=== PATIENT | female | born 2005 | race Caucasian/White ===

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

== ENCOUNTER 2025-01-23 23:47 | Emergency (ER) | payer OTHER ==
--- OUTSIDE RECORDS SUMMARY | 2025-01-23 23:49 | XMS REPORT | Continuity of Care Document ---
Author Name Unknown Address [address] [facility] [address] [place] [address] [facility] [address] [facility] [address] [place] [address] Care Team Providers Care Blankbook Forwarder Name Role Phone GUILLERMINA PATHAK Primary Care Physician Unavailab SUGAR Foster Attending Clinician Unavailable Sugar Meza MD Attending Clinician [phone] Doctor Unassigned, [place] Attending Clinician U Devyn Jaeger Attending Clinician [phone] Cathie Keane PA-C Attending Clinician [phone] Jonathan Mcpherson CRNA Attending Clinician [phone] Jennifer Rueda MD, Leonard Attending Clinician + [phone] Only, Adc Test Attending Clinician Unavailable Domi Roberson RN Attending Clinician Unavailable 2, Adc Lab Attending Clinician Unavailable Ultrasound, Adc Mfm Attending Clinician Unavaila siddhartha Vidales MD, Herzog Attending Clinician + Pob, Adc Lab Main Attending Clinician Unavailabl e V_Landis Attending Clinician Unavailable Raju_P Attending Clinician Unavailable SUGAR MEZA Admitting Clinician Unavailable Sugar Meza MD Admitting Clinician [phone] V_Jorgito Admitting Clinician Unavailable Raju_P Admitting Clinician Unavailable Payers Payer Name Policy Type Policy Number Effective Date Expirati on Date Source [facility] MEDICAID [id number] 2019 00:00:00 [facility] [id number] 00:00:00 [facility] (MEDICAID REPLACEMENT - HMO) [id number] [facility] (MEDICAID HMO) [id number] Problems Condition Name Condition Details Condition Category Status Onset Date Resolution Date Last Treatment Date Treating Clinician Comments Source Pain, joint, knee, left Pain, joint, knee, left Diagnosis Active [facility] 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 Diagnosis Active [facility] Hamstring tendinitis of left thigh Hamstring tendinitis of left thigh Diagnosis Active [facility] No known active problems No known active problems Disease [facility] Allergies, Adverse Reactions, Alerts Allergy Name Allergy Type Status Severity Reaction(s) Onset Date Inactive Date Treating Clinician Comments Source NO KNOWN ALLERGIE S Drug Class Active [facility] Social History Social Habit Start Date Stop Date Quantity Comments Source History of tobacco use Passive smoker [facility] Exposure to SARS-CoV-2 (event) 2022-04-28 00:00:00 2022-05-08 09:29:00 Not sure [facility] Tobacco use and exposure 2022-05-08 00:00:00 2022-05-08 00:00:00 User of smokeless tobacco [facility] Alcohol intake 2022-05-08 00:00:00 2022-05-08 00:00:00 0 /d [facility] Sex Assigned At 2005 00:00:00 2005 00:00:00 [facility] Smoking Status Start Date Stop Date Source Never smoked tobacco [facility] Medications Ordered Medication Name Filled Medication Name Start Date Stop Date Current Medication? Ordering Clinician Indication Dosage Frequency Signature (SIG) Comments Components Source Nitrofurant oin&Nit. Macrocryst 100 mg capsule 05-11 00:00: 00 Yes [id number] 100mg Take 1 capsule by mouth in the morning and 1 capsule in the evening. [facility] fluconazole 150 mg tablet 05-11 00:00: 00 05-12 04:59 :00 No [id number] 150mg Take 1 tablet by mouth once now for 1 dose. [facility] 25/iron fum/folic/d murillo (-1 ORAL) 05-16 15:00: 18 Yes Take by mouth. [facility] Dion Ashley Yes Fransisco Hamilton not defined [facility] Vital Signs Vital Name Observation Time Observation Value Comments Noble jimenez Systolic blood pressure 2022-05-08 14:54:00 109 mm[Hg] [facility] Diastolic blood pressure 2022-05-08 14:54:00 75 mm[Hg] [facility] Heart rate 2022-05-08 14:54:00 91 /min [facility] Body temperature 2022-05-08 14:54:00 36.89 Harleen [facility] Respiratory rate 2022-05-08 14:54:00 18 /min [facility] Body height 2022-05-08 14:54:00 162.6 cm [facility] Body weight 2022-05-08 14:54:00 63.322 kg [facility] BMI 2022-05-08 14:54:00 23.96 kg/m2 [facility] Body mass index (BMI) [Percentile] Per age and sex 2022-05-08 14:54:00 76.16 % [facility] Procedures Procedure Date / Time Performed Performing Clinicia n Source POCT URINALYSIS W/O SPECIFIC GRAVITY 2022-05-08 00:00:00 Sugar Meza [facility] Encounters Start Date/Time End Date/Time Encounter Type Admission Type Attending Clinicians Care Facility Care Department Encounter ID Source 2021-07-24 10:29:02 Emergency [facility] [id number] [facility] 2021-07-24 05:45:00 Outpatient P [facility] [id number] [facility] 2021-07-24 05:44:47 Outpatient P [facility] [id number] [facility] 2023-05-09 13:30:00 2023-05-09 13:30:00 Outpatient SUGAR KNIGHT [facility] [id number] [facility] 2023-05-09 13:30:00 2023-05-09 13:30:00 Outpatient R ADSUGAR CORNELL [facility] [id number] [facility] 2022-05-16 11:00:00 2022-05-16 11:00:00 Outpatient R ADUMSUGAR [facility] [id number] [facility] 2022-05-16 11:00:00 2022-05-16 11:00:00 Outpatient R ADUMSUGAR [facility] [id number] [facility] 2022-05-16 11:00:00 2022-05-16 11:00:00 Outpatient R ADUMSUGAR [facility] [id number] [facility] 2022-05-11 00:00:00 2022-05-11 00:00:00 Case Management Sugar Meza [facility] 1.2.840.114 350.1.13.10 4.2.7.2.686 [id number] [facility] 2022-05-08 09:30:00 2022-05-08 10:39:19 Outpatient R ADSUGAR CORNELL [facility] [id number] [facility] 2022-05-08 09:30:00 2022-05-08 10:39:19 Office Visit Sugar Meza [facility] 1.2.840.114 350.1.13.10 4.2.7.2.686 [id number] [facility] 2022-05-08 09:30:00 2022-05-08 10:39:19 Outpatient R ADSUGAR CORNELL [facility] [id number] [facility] 2022-03-21 09:00:00 2022-03-21 09:00:00 Outpatient R ADUMSUGAR [facility] [id number] [facility] 2022-02-13 10:30:00 2022-02-13 10:30:00 Outpatient R ADUMSUGAR [facility] [id number] [facility] 2022-02-13 10:30:00 2022-02-13 10:30:00 Outpatient R SUGAR MEZA [facility] [id number] [facility] 2022-02-06 13:30:00 2022-02-06 13:30:00 [id number] 2021-12-26 14:00:00 2021-12-26 15:00:50 Office Visit AdSugar cornell [facility] 1..840.114 350.1.13.10 4.2.7.2.686 [id number] 134 [id number] [facility] 2021-12-26 14:00:00 2021-12-26 15:00:50 Outpatient R JES [facility] [id number] [facility] 2021-12-26 14:00:00 2021-12-26 14:00:00 Outpatient R ADKRAIG [facility] [id number] [facility] 2021-12-26 09:00:00 2021-12-26 09:00:00 Outpatient R JES [facility] [id number] [facility] 2021-12-26 00:00:00 2021-12-26 00:00:00 Orders Only Doctor Unassigned, [place] [facility] 1..840.114 350.1.13.10 4.2.7.2.686 [id number] [facility] 2021-12-06 15:00:00 2021-12-06 15:00:00 Office Visit Sugar Meza [facility] 1..840.114 350.1.13.10 4.2.7.2.686 [id number] [facility] 2021-12-06 15:00:00 2021-12-06 14:49:58 Outpatient R ADKRAIG [facility] [id number] [facility] 2021-12-06 15:00:00 2021-12-06 14:49:58 Outpatient R NIRAVSUGAR CORNELL [facility] [id number] [facility] 2021-05-16 14:25:08 2021-05-16 15:13:14 Routine Visit NiravSugar cornell [facility] 1.2.840.114 350.1.13.10 4.2.7.2.686 [id number] 134 [id number] [facility] 2021-05-16 14:00:00 2021-05-16 14:00:00 Outpatient R JESSUGAR [facility] [id number] [facility] 2021-05-16 00:00:00 2021-05-16 00:00:00 Orders Only Doctor Unassigned, [place] [facility] 1.2.840.114 350.1.13.10 4.2.7.2.686 [id number] [facility] 2021-04-25 14:07:14 2021-04-25 14:47:25 Routine Visit NiravSugar cornell [facility] 1.2.840.114 350.1.13.10 4.2.7.2.686 [id number] [facility] 2021-04-25 14:00:00 2021-04-25 14:00:00 Outpatient R NIRAVSUGAR CORNELL [facility] [id number] [facility] 2021-04-14 22:09:00 2021-04-15 00:38:00 Emergency LizaDiannmarco [facility] 1.2.840.114 350.1.13.10 4.2.7.2.686 [id number] [facility] 2021-04-11 11:00:38 2021-04-11 11:28:35 Routine Visit Cathie Keane Sugar L [facility] 1.2.840.114 350.1.13.10 4.2.7.2.686 [id number] 134 [id number] [facility] 2021-04-11 11:00:00 2021-04-11 11:00:00 Outpatient R SUGAR MEZA [facility] [id number] [facility] 2021-04-06 03:53:00 2021-04-07 23:45:00 Hospital Encounter Sugar Meza [facility] 1.2.840.114 350.1.13.10 4.2.7.2.686 [id number] [facility] 2021-04-07 20:03:23 2021-04-07 20:03:23 Anesthesia Event Jonathan Mcpherson [facility] 1.2.840.114 350.1.13.10 4.2.7.2.686 [id number] [facility] 2021-04-06 12:30:00 2021-04-06 21:49:00 Anesthesia Event Jonathan Mcpherson Jennifer Stephen [facility] 1.2.840.114 350.1.13.10 4.2.7.2.686 [id number] [facility] 2021-04-05 13:24:41 2021-04-05 13:39:41 Laboratory Only Only, Adc Test Sugar Meza [facility] 1.2.840.114 350.1.13.10 4.2.7.2.686 [id number] [facility] 2021-04-05 13:15:00 2021-04-05 13:15:00 Outpatient R SUGAR MEZA [facility] [id number] [facility] 2021-04-05 00:00:00 2021-04-05 00:00:00 Orders Only Doctor Unassigned, [place] [facility] 1.20.114 350.1.13.10 4.2.7.2.686 [id number] [facility] 2021-04-04 15:17:13 2021-04-04 15:58:58 Routine Visit Adum, Sugar Mcconnell [facility] 1.2840.114 350.1.13.10 4.2.7.2.686 [id number] [facility] 2021-04-04 15:15:00 2021-04-04 15:15:00 Outpatient R ADSUGAR CORNELL [facility] [id number] [facility] 2021-03-28 14:20:38 2021-03-28 15:01:15 Routine Visit Adum, Sugar [facility] 1.284.114 350.1.13.10 4.2.7.2.686 [id number] [facility] 2021-03-28 14:15:00 2021-03-28 14:15:00 Outpatient R ADUM, SUGAR [facility] [id number] [facility] 2021-03-27 00:00:00 2021-03-27 00:00:00 Refill Adum, Sugar [facility] 1.284.114 350.1.13.10 4.2.7.2.686 [id number] [facility] 2021-03-24 21:43:00 2021-03-25 00:20:00 Hospital Encounter AdSugar cornell [facility] 1.2.114 350.1.13.10 4.2.7.2.686 [id number] [facility] 2021-03-24 00:00:00 2021-03-24 00:00:00 Nurse Triage Domi Roberson [facility] 1.2840.114 350.1.13.10 4.2.7.2.686 [id number] [facility] 2021-03-21 10:00:24 2021-03-21 10:15:24 Aging Box Hand Visit 2, Adc Lab Adum, Sugar Mcconnell [place]FAELA [place] [facility] 1.2.840.114 350.1.13.10 4.2.7.2.686 [id number] [facility] 2021-03-21 08:41:08 2021-03-21 09:17:03 Routine Visit Adum, Sugar Mcconnell [facility] 1.2.840.114 350.1.13.10 4.2.7.2.686 [id number] [facility] 2021-03-21 08:30:00 2021-03-21 08:30:00 Outpatient R ADUM, SUGAR [facility] [id number] [facility] 2021-03-21 00:00:00 2021-03-21 00:00:00 Orders Only Doctor Unassigned, [place] [facility] 1.2.840.114 350.1.13.10 4.2.7.2.686 [id number] [facility] 2021-03-07 08:18:59 2021-03-07 09:01:50 Routine Visit Adum, Sugar Mcconnell [facility] 1.2.840.114 350.1.13.10 4.2.7.2.686 [id number] [facility] 2021-03-07 08:15:00 2021-03-07 08:15:00 Outpatient R ADKRAIG SUGAR [facility] [id number] [facility] 2021-02-17 08:29:38 2021-02-17 09:05:38 Routine Visit Adum, Sugar Mcconnell [facility] 1.2.840.114 350.1.13.10 4.2.7.2.686 [id number] [facility] 2021-02-17 08:15:00 2021-02-17 08:15:00 Outpatient R ADUM, SUGAR [facility] [id number] [facility] 2021-02-03 08:15:00 2021-02-03 09:20:29 Routine Visit Adum, Sugar [facility] 1.2.840.114 350.1.13.10 4.2.7.2.686 [id number] 134 [id number] [facility] 2021-02-03 08:15:00 2021-02-03 08:15:00 Outpatient R ADUM, [facility] [id number] [facility] 2021-01-20 09:29:35 2021-01-20 09:44:35 Aging Box Hand Visit 2, Adc Lab Adum, Sugar [facility] 1.2.840.114 350.1.13.10 4.2.7.2.686 [id number] [facility] 2021-01-20 08:49:46 2021-01-20 09:23:42 Routine Visit Adum, Sugar Mcconnell [facility] 1.2.840.114 350.1.13.10 4.2.7.2.686 [id number] [facility] 2021-01-20 08:30:00 2021-01-20 08:30:00 Outpatient R ADUM, [facility] [id number] [facility] 2021-01-20 08:15:00 2021-01-20 08:15:00 Outpatient R ADUM, [facility] [id number] [facility] 2021-01-20 00:00:00 2021-01-20 00:00:00 Orders Only Doctor Unassigned, [place] [facility] 1.2.840.114 350.1.13.10 4.2.7.2.686 [id number] [facility] 2020-12-23 09:24:56 2020-12-23 10:09:56 Aging Box Hand Visit Ultrasound, [facility] Rosenda Simental [facility] 1.2.840.114 350.1.13.10 4.2.7.2.686 [id number] 134 [id number] [facility] 2020-12-23 08:28:32 2020-12-23 09:28:16 Routine Visit Adum, Sugar Enedina [facility] 1.2.840.114 350.1.13.10 4.2.7.2.686 [id number] [facility] 2020-12-23 08:15:00 2020-12-23 08:15:00 Outpatient R ADUM, [facility] [id number] [facility] 2020-11-25 15:27:41 2020-11-25 16:13:45 [facility] 1.2.840.114 350.1.13.10 4.2.7.2.686 [id number] [facility] 2020-11-25 13:25:57 2020-11-25 14:25:57 Aging Box Hand Visit Ultrasound, [facility] Ad, Sugar Enedina contreras [facility] 1.2.840.114 350.1.13.10 4.2.7.2.686 [id number] [facility] 2020-11-25 13:30:00 2020-11-25 13:30:00 Outpatient R ADUM, [facility] [id number] [facility] 2020-11-25 00:00:00 2020-11-25 00:00:00 Case Management Adum, Sugar Mcconnell [facility] 1.2.840.114 350.1.13.10 4.2.7.2.686 [id number] [facility] 2020-11-22 00:00:00 2020-11-22 00:00:00 Case Management Adum, Sugar Mcconnell [facility] 1.2.840.114 350.1.13.10 4.2.7.2.686 [id number] [facility] 2020-11-17 11:45:00 2020-11-17 11:45:00 Outpatient R ADSUGAR CORNELL [facility] [id number] [facility] 2020-11-17 09:39:53 2020-11-17 09:54:53 Aging Box Hand Visit 2, Adc Lab Adum, Sugar Mcconnell [facility] 1.2.840.114 350.1.13.10 4.2.7.2.686 [id number] [facility] 2020-11-16 00:00:00 2020-11-16 00:00:00 Telephone Adum, Sugar Mcconnell [facility] 1.2.840.114 350.1.13.10 4.2.7.2.686 [id number] [facility] 2020-10-31 09:00:00 2020-10-31 09:00:00 Outpatient R [facility] [id number] [facility] 2020-10-31 00:00:00 2020-10-31 00:00:00 Telephone Adum, Sugar Mcconnell [facility] 1.2.840.114 350.1.13.10 4.2.7.2.686 [id number] [facility] 2020-10-26 15:52:58 2020-10-26 16:59:05 Telemedici ne Visit Adum, Sugar Mcconnell [facility] 1.2.840.114 350.1.13.10 4.2.7.2.686 [id number] 134 [id number] [facility] 2020-10-26 16:00:00 2020-10-26 16:00:00 Outpatient R ADUM, SUGAR [facility] [id number] [facility] 2020-10-19 11:30:00 2020-10-19 11:30:00 Outpatient R ADUMSUGAR [facility] [id number] [facility] 2020-10-04 00:00:00 2020-10-04 00:00:00 Telephone Adum, Sugar Mcconnell [facility] 1.2.840.114 350.1.13.10 4.2.7.2.686 [id number] [facility] 2020-09-30 00:00:00 2020-09-30 00:00:00 Telephone Adum, Sugar Mcconnell [facility] 1.2.840.114 350.1.13.10 4.2.7.2.686 [id number] [facility] 2020-09-21 09:59:32 2020-09-21 11:34:22 Routine Visit Adum, Sugar Mcconnell [facility] 1.2.840.114 350.1.13.10 4.2.7.2.686 [id number] 134 [id number] [facility] 2020-09-21 10:15:00 2020-09-21 10:15:00 Outpatient R ADUM, SUGAR [facility] [id number] [facility] 2020-09-21 00:00:00 2020-09-21 00:00:00 Orders Only Doctor Unassigned, [place] [facility] 1.2.840.114 350.1.13.10 4.2.7.2.686 [id number] [facility] 2020-08-30 00:00:00 2020-08-30 00:00:00 Telephone Adum, Sugar Mcconnell [place]RAFAELA [place] [facility] 1.2.840.114 350.1.13.10 4.2.7.2.686 [id number] [facility] 2020-08-26 09:48:00 2020-08-26 10:03:00 Aging Box Hand Visit 2, Adc Lab Adum, Sugar Mcconnell [facility] [place] [facility] 1.2.840.114 350.1.13.10 4.2.7.2.686 [id number] [facility] 2020-08-26 09:15:00 2020-08-26 09:15:00 Outpatient R [facility] [id number] [facility] 2020-08-24 12:22:39 2020-08-24 12:37:39 Aging Box Hand Visit Pob, Adc Lab Main Adum, Sugar Mcconnell [facility] [place] [facility] 1.2.840.114 350.1.13.10 4.2.7.2.686 [id number] [facility] 2020-08-24 10:53:04 2020-08-24 12:11:59 Initial Visit Adum, Sugar Mcconnell [facility] [place] [facility] 1.2.840.114 350.1.13.10 4.2.7.2.686 [id number] [facility] 2020-08-24 10:30:00 2020-08-24 10:30:00 Outpatient R ADKRAIG, SUGAR [facility] [id number] [facility] 2020-08-24 00:00:00 2020-08-24 00:00:00 Orders Only Doctor Unassigned, [place] [facility] 1.2.840.114 350.1.13.10 4.2.7.2.686 [id number] [facility] 2020-08-22 00:00:00 2020-08-22 00:00:00 Telephone AdSugar cornell WYRAFAELA Savannah [facility] 1.2.840.114 350.1.13.10 4.2.7.2.686 [id number] [facility] 2020-07-11 05:09:00 2020-07-11 05:09:00 [facility] [id number] [facility] 2020-06-27 11:02:00 2020-06-27 11:02:00 Outpatient Raju[facility] [id number] [facility] 2020-06-27 11:02:00 2020-06-27 11:02:00 [facility] [id number] [facility] 2019-01-01 08:30:00 2019-01-01 08:30:00 Out[facility] [id number] [facility] Results Test Description Test Time Test Comments Results Result Co mments Source [facility]
--- NOTE | 2025-01-24 02:06 | RAD REPORT ---
EXAM: XR KNEE 3 VIEWS LEFT CLINICAL DATA: 19 years Female PAIN TECHNICAL DATA: Three x-ray views of the left knee were performed on 01/24/2025 at 1:35 AM. COMPARISONS: None FINDINGS: There is no evidence of fracture or dislocation. There is no significant arthritis or degenerative ch negrita. No focal lytic bone lesions are seen. There may be a small bone island within the lateral femoral condyle. Bone mineralization is normal. No focal soft tissue abnormalities are identified. IMPRESSION: No evidence of acute osseous injury involving the left knee. There may be a small bone island within the lateral femoral condyle. Electronically signed by: Kerri Barahona DO 01/24/2025 01:53 AM CDT Due to temporary technical issues with the PACS/NaviExpert reporting system, reports are being gianni d by the in-house radiologist without review as a courtesy to ensure prompt reporting the interpreting radiologist is fully responsible for the content of the report. Transcribed Date/Time: 01/24/2025 2:06 AM
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
--- NOTE | 2025-01-24 02:20 | RAD REPORT ---
EXAM: CT abdomen and pelvis with IV contrast CLINICAL DATA: 19 years Female ABD PAIN TECHNICAL DATA: Axial CT imaging of the abdomen and pelvis was performed following the administration of intravenous contrast.. Oral contrast was not administered. Sagittal and coronal reconstructed images were then performed. The CT study is performed according to ALARA (as low as reasonably achievable) or A BRANDON/IMAGE GENTLY, with automatic adjustment of mA and/or kV according to patient size. Performed on: 01/24/2025 at 1:33 AM. Comparison: No prior studies were available for comparison. FINDINGS: Lung bases: The lung bases are clear. The heart is normal in size. Liver: The liver is normal in size and configuration. No focal hepatic abnormalities are identified. Liver attenuation is within normal limits. The hepatic and portal veins are patent. Spleen: The spleen is normal in size, configuration and attenuation. Gallbladder and bile duct: The gallbladder is partially distended and is grossly unremarkable. Ther e is no biliary ductal dilatation. Pancreas: The pancreas is grossly normal in size and configuration. Adrenal Glands: The adrenal glands are normal in size and configuration. Kidneys: The kidneys are normal in size and configuration. There is no evidence of hydronephrosis. Th ere is no evidence of nephrolithiasis. No definite solid or cystic renal mass lesions are identified. Stomach: The stomach is grossly normal. There is no definite hiatal hernia. Bowel: The bowel gas pattern is non specific and non obstructive. Appendix: The appendix is normal. Free air: There is no evidence of free air. Free fluid: There is no evidence of free fluid. Vasculature: The aorta is normal in caliber and contour. The inferior vena cava is grossly unremarkab le. Lymphadenopathy: No pathologic lymphadenopathy is identified. Bladder: The bladder is partially distended and smooth in contour. Reproductive: The uterus is grossly within normal limits. An intrauterine device is present in grossl y satisfactory position. There is an approximately 2.7 x 2.3 cm left adnexal cyst likely ovarian in nature. No follow-up imaging is recommended. Bones: No acute osseous abnormalities are identified. There is a prominent Schmorl's node along the a nterior superior endplate of T12. Soft tissues: No acute soft tissue abnormalities are identified. IMPRESSION: 1. No evidence of acute intra-abdominal or intrapelvic pathology. There is no evidence of bowel obs truction, acute appendicitis, acute gallbladder pathology or urinary tract obstruction. 2. Intrauterine device present in grossly satisfactory position. 3. There is an approximately 2.7 x 2.3 cm left adnexal cyst likely ovarian in nature. No follow-up imaging recommended. Electronically signed by: Kerri Barahona DO 01/24/2025 02:00 AM CDT RP Due to temporary technical issues with the PACS/Weele reporting system, reports are being gianni d by the in-house radiologist without review as a courtesy to ensure prompt reporting the interpreting radiologist is fully responsible for the content of the report. Transcribed Date/Time: 01/24/2025 2:20 AM
[2025-01-24 05:33] VITALS: O2SAT 100
[2025-01-24 05:36] VITALS: BP 110/64
== END 2025-01-24 02:47 | disposition home or self-care (01) ==
LOC: ER 23:47
DX: R10.31 Right lower quadrant pain (principal); M25.562 Pain in left knee; V49.50XA Passenger injured in collision with unspecified motor vehicles in traffic accident, initial encounter
CPT/HCPCS: 74177; 73562; 99283; Q9967

== ENCOUNTER 2025-04-29 16:11 | Emergency (ER) | payer OTHER, SELFPAY ==
--- OUTSIDE RECORDS SUMMARY | 2025-04-29 16:15 | XMS REPORT | Continuity of Care Document ---
Author Name Unknown Address [address] [facility] [address] [place] [address] [facility] Address [address] [place] [address] Care Team Providers Care Detail Technician Name Role Phone GUILLERMINA PATHAK Primary Care Physician Unavailab SUGAR Foster Attending Clinician Unavailable SUGAR MEZA Attending Clinician Unavailable Doctor Unassigned, [place] Attending Clinician U Devyn Jaeger Attending Clinician [phone] Cathie Keane PA-C Attending Clinician [phone] Jonathan Mcpherson CRNA Attending Clinician [phone] Jennifer Rueda MD, Leonard Attending Clinician + [phone] Only, Adc Test Attending Clinician Unavailable Domi Roberson RN Attending Clinician Unavailable 2, Adc Lab Attending Clinician Unavailable Ultrasound, Adc Mfm Attending Clinician Unavaila siddhartha Vidales MD, Herz[place] Attending Clinician + Pob, Adc Lab Main Attending Clinician Unavailabl e Marybeth_Jorgito Attending Clinician Unavailable Raju_P Attending Clinician Unavailable SUGAR MEZA Admitting Clinician Unavailable Sugar Meza MD Admitting Clinician [phone] Marybeth_Jorgito Admitting Clinician Unavailable Raju_P Admitting Clinician Unavailable Payers Payer Name Policy Type Policy Number Effective Date Expirati on Date Source [facility]MERLY [facility] MEDICAID [id number] 2019 00:00:00 [facility] [id number] 00:00:00 [facility] (MEDICAID REPLACEMENT - HMO) [id number] [facility] (MEDICAID HMO) [id number] Problems Condition Name Condition Details Condition Category Status Onset Date Resolution Date Last Treatment Date Treating Clinician Comments Source 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 Diagnosis Active [facility] Hamstring tendinitis of left thigh Hamstring tendinitis of left thigh Diagnosis Active [facility] No known active problems No known active problems Disease [facility] Pain, joint, knee, left Pain, joint, knee, left Diagnosis Active [facility] Allergies, Adverse Reactions, Alerts Allergy Name Allergy Type Status Severity Reaction(s) Onset Date Inactive Date Treating Clinician Comments Source NO KNOWN ALLERGIE S Drug Class Active [facility] Social History Social Habit Start Date Stop Date Quantity Comments Source History of tobacco use Passive smoker [facility] Exposure to SARS-CoV-2 (event) 2022-04-28 00:00:00 2022-05-08 09:29:00 Not sure [facility] Tobacco use and exposure 2022-05-08 00:00:00 2022-05-08 00:00:00 User of smokeless tobacco [facility] Alcohol intake 2022-05-08 00:00:00 2022-05-08 00:00:00 0 /d [facility] Sex Assigned At 2005 00:00:00 2005 00:00:00 [facility] Smoking Status Start Date Stop Date Source Never smoked tobacco [facility] Medications Ordered Medication Name Filled Medication Name Start Date Stop Date Current Medication? Ordering Clinician Indication Dosage Frequency Signature (SIG) Comments Components Source Nitrofurant oin&Nit. Macrocryst 100 mg capsule 05-11 00:00: 00 Yes [id number] 100mg Take 1 capsule by mouth in the morning and 1 capsule in the evening. [facility] fluconazole 150 mg tablet 05-11 00:00: 00 05-12 04:59 :00 No [id number] 150mg Take 1 tablet by mouth once now for 1 dose. [facility] 25/iron fum/folic/d murillo (-1 ORAL) 05-16 15:00: 18 Yes Take by mouth. [facility] Lumigan Lumigan Yes Fransisco Hamilton not defined [facility] Vital Signs Vital Name Observation Time Observation Value Comments Noble jimenez Systolic blood pressure 2022-05-08 14:54:00 109 mm[Hg] [place] o [facility] Diastolic blood pressure 2022-05-08 14:54:00 75 mm[Hg] [place] o [facility] Heart rate 2022-05-08 14:54:00 91 /[facility] Body temperature 2022-05-08 14:54:00 36.89 Harleen [facility] Respiratory rate 2022-05-08 14:54:00 18 /min [facility] Body height 2022-05-08 14:54:00 162.6 cm [facility] Body weight 2022-05-08 14:54:00 63.322 kg [facility] BMI 2022-05-08 14:54:00 23.96 kg/m2 [facility] Body mass index (BMI) [Percentile] Per age and sex 2022-05-08 14:54:00 76.16 % [facility] Procedures Procedure Date / Time Performed Performing Clinicia n Source POCT URINALYSIS W/O SPECIFIC GRAVITY 2022-05-08 00:00:00 Sugar Meza [facility] Encounters Start Date/Time End Date/Time Encounter Type Admission Type Attending Clinicians Care Facility Care Department Encounter ID Source 2021-07-24 10:29:02 Emergency [facility] [id number] [facility] 2021-07-24 05:45:00 Outpatient P [facility] MARIIA [id number] [facility] 2021-07-24 05:44:47 Outpatient P [facility] MARIIA [id number] [facility] 2025-04-01 15:30:00 2025-04-01 15:30:00 Outpatient SUGAR KNIGHT VIVIAN [facility] [id number] [facility] 2023-05-09 13:30:00 2023-05-09 13:30:00 Outpatient SUGAR KNIGHT [facility] [id number] [facility] 2023-05-09 13:30:00 2023-05-09 13:30:00 Outpatient R ADSUGAR CONRELL [facility] [id number] [facility] 2022-05-16 11:00:00 2022-05-16 11:00:00 Outpatient R ADUMSUGAR [facility] [id number] [facility] 2022-05-16 11:00:00 2022-05-16 11:00:00 Outpatient R ADUMSUGAR [facility] [id number] [facility] 2022-05-16 11:00:00 2022-05-16 11:00:00 Outpatient R ADSUGAR CORNELL [facility] [id number] [facility] 2022-05-11 00:00:00 2022-05-11 00:00:00 Case Management NiravSugar cornell [facility] 1.2.840.114 350.1.13.10 4.2.7.2.686 [id number] [facility] 2022-05-08 09:30:00 2022-05-08 10:39:19 Outpatient R SUGAR MEZA [facility] [id number] [facility] 2022-05-08 09:30:00 2022-05-08 10:39:19 Office Visit Sugar Meza [facility] 1.2.840.114 350.1.13.10 4.2.7.2.686 [id number] [facility] 2022-05-08 09:30:00 2022-05-08 10:39:19 Outpatient R ADSUGAR CORNELL [facility] [id number] [facility] 2022-03-21 09:00:00 2022-03-21 09:00:00 Outpatient R ADUMSUGAR [facility] [id number] [facility] 2022-02-13 10:30:00 2022-02-13 10:30:00 Outpatient R ADUM, SUGAR [facility] [id number] [facility] 2022-02-13 10:30:00 2022-02-13 10:30:00 Outpatient R ADUMSUGAR [facility] [id number] [facility] 2022-02-06 13:30:00 2022-02-06 13:30:00 Outpatient R ADKRAIG [facility] [id number] [facility] 2021-12-26 14:00:00 2021-12-26 15:00:50 Office Visit AdSugar cornell [facility] 1.840.114 350.1.13.10 4.2.7.2.686 [id number] [facility] 2021-12-26 14:00:00 2021-12-26 15:00:50 Outpatient R ADUM, [facility] [id number] [facility] 2021-12-26 14:00:00 2021-12-26 14:00:00 Outpatient R ADKRAIG [facility] [id number] [facility] 2021-12-26 09:00:00 2021-12-26 09:00:00 Outpatient R ADUM [facility] [id number] [facility] 2021-12-26 00:00:00 2021-12-26 00:00:00 Orders Only Doctor Unassigned, [place] [facility] 1.840.114 350.1.13.10 4.2.7.2.686 [id number] [facility] 2021-12-06 15:00:00 2021-12-06 15:00:00 Office Visit AdumSugar [facility] 1..840.114 350.1.13.10 4.2.7.2.686 [id number] [facility] 2021-12-06 15:00:00 2021-12-06 14:49:58 Outpatient R ADUM, SUGAR [facility] [id number] [facility] 2021-12-06 15:00:00 2021-12-06 14:49:58 Outpatient R ADUM, SUGAR [facility] [id number] [facility] 2021-05-16 14:25:08 2021-05-16 15:13:14 Routine Visit Adum, Sugar [facility] 1.2.840.114 350.1.13.10 4.2.7.2.686 [id number] [facility] 2021-05-16 14:00:00 2021-05-16 14:00:00 Outpatient R ADUM, [facility] [id number] [facility] 2021-05-16 00:00:00 2021-05-16 00:00:00 Orders Only Doctor Unassigned, [place] [facility] 1.2840.114 350.1.13.10 4.2.7.2.686 [id number] [facility] 2021-04-25 14:07:14 2021-04-25 14:47:25 Routine Visit Adum, Sugar Mcconnell [facility] 1.2.840.114 350.1.13.10 4.2.7.2.686 [id number] [facility] 2021-04-25 14:00:00 2021-04-25 14:00:00 Outpatient R ADUM, [facility] [id number] [facility] 2021-04-14 22:09:00 2021-04-15 00:38:00 Emergency LizaDevyn [facility] 1.2840.114 350.1.13.10 4.2.7.2.686 [id number] [facility] 2021-04-11 11:00:38 2021-04-11 11:28:35 Routine Visit ElpidioCathie allen Vivian L [facility] Professio [facility] 1.2.840.114 350.1.13.10 4.2.7.2.686 [id number] 134 [id number] [facility] 2021-04-11 11:00:00 2021-04-11 11:00:00 Outpatient R SUGAR MEZA [facility] [id number] [facility] 2021-04-06 03:53:00 2021-04-07 23:45:00 Hospital Encounter Sugar Meza [facility] 1.2.840.114 350.1.13.10 4.2.7.2.686 [id number] [facility] 2021-04-07 20:03:23 2021-04-07 20:03:23 Anesthesia Event Jonathan Mcpherson [facility] 1.2.840.114 350.1.13.10 4.2.7.2.686 [id number] [facility] 2021-04-06 12:30:00 2021-04-06 21:49:00 Anesthesia Event Jonathan Mcpherson Stephen Rodriguez [facility] 1.2.840.114 350.1.13.10 4.2.7.2.686 [id number] [facility] 2021-04-05 13:24:41 2021-04-05 13:39:41 Laboratory Only Only, Adc Test Sugar Meza [facility] 1.2.840.114 350.1.13.10 4.2.7.2.686 [id number] [facility] 2021-04-05 13:15:00 2021-04-05 13:15:00 Outpatient R JES SUGAR [facility] [id number] [facility] 2021-04-05 00:00:00 2021-04-05 00:00:00 Orders Only Doctor Unassigned, [place] [facility] 1.2.840.114 350.1.13.10 4.2.7.2.686 [id number] [facility] 2021-04-04 15:17:13 2021-04-04 15:58:58 Routine Visit Adum, Sugar [facility] 1.2840.114 350.1.13.10 4.2.7.2.686 [id number] [facility] 2021-04-04 15:15:00 2021-04-04 15:15:00 Outpatient R ADKRAIG, SUGAR [facility] [id number] [facility] 2021-03-28 14:20:38 2021-03-28 15:01:15 [facility] 1.2840.114 350.1.13.10 4.2.7.2.686 [id number] [facility] 2021-03-28 14:15:00 2021-03-28 14:15:00 Outpatient R ADUM, SUGAR [facility] [id number] [facility] 2021-03-27 00:00:00 2021-03-27 00:00:00 Refill Adkraig, Sugar [facility] 1.2840.114 350.1.13.10 4.2.7.2.686 [id number] 134 [id number] [facility] 2021-03-24 21:43:00 2021-03-25 00:20:00 Hospital Encounter Adum, Sugar [facility] 1.2840.114 350.1.13.10 4.2.7.2.686 [id number] [facility] 2021-03-24 00:00:00 2021-03-24 00:00:00 Nurse Triage Da, Domi [facility] 1..114 350.1.13.10 4.2.7.2.686 [id number] [facility] 2021-03-21 10:00:24 2021-03-21 10:15:24 Data Review Specialist Visit 2, Adc Lab Adum, Sugar Mcconnell [facility] 1.284.114 350.1.13.10 4.2.7.2.686 [id number] [facility] 2021-03-21 08:41:08 2021-03-21 09:17:03 Routine Visit Adum, Sugar [facility] 1.284.114 350.1.13.10 4.2.7.2.686 [id number] [facility] 2021-03-21 08:30:00 2021-03-21 08:30:00 Outpatient R ADKRAIG [facility] [id number] [facility] 2021-03-21 00:00:00 2021-03-21 00:00:00 Orders Only Doctor Unassigned, [place] [facility] 1.84.114 350.1.13.10 4.2.7.2.686 [id number] [facility] 2021-03-07 08:18:59 2021-03-07 09:01:50 Routine Visit Adum, Sugar [facility] 1.284.114 350.1.13.10 4.2.7.2.686 [id number] [facility] 2021-03-07 08:15:00 2021-03-07 08:15:00 Outpatient R ADUM [facility] [id number] [facility] 2021-02-17 08:29:38 2021-02-17 09:05:38 Routine Visit Adum, Sugar Mcconnell [facility] 1.2.840.114 350.1.13.10 4.2.7.2.686 [id number] [facility] 2021-02-17 08:15:00 2021-02-17 08:15:00 Outpatient R ADUM, SUGAR [facility] [id number] [facility] 2021-02-03 08:15:00 2021-02-03 09:20:29 Routine Visit Adum, Sugar Mcconnell [facility] 1.2.840.114 350.1.13.10 4.2.7.2.686 [id number] [facility] 2021-02-03 08:15:00 2021-02-03 08:15:00 Outpatient R ADUM, SUGAR [facility] [id number] [facility] 2021-01-20 09:29:35 2021-01-20 09:44:35 Data Review Specialist Visit 2, Adc Lab Adum, Sugar Mcconnell [facility] 1.2.840.114 350.1.13.10 4.2.7.2.686 [id number] [facility] 2021-01-20 08:49:46 2021-01-20 09:23:42 Routine Visit Adum, Sugar Mcconnell [facility] 1.2.840.114 350.1.13.10 4.2.7.2.686 [id number] [facility] 2021-01-20 08:30:00 2021-01-20 08:30:00 Outpatient R ADUM, SUGAR [facility] [id number] [facility] 2021-01-20 08:15:00 2021-01-20 08:15:00 [id number] 2021-01-20 00:00:00 2021-01-20 00:00:00 Orders Only Doctor Unassigned, [place] [facility] 1.2.840.114 350.1.13.10 4.2.7.2.686 [id number] [facility] 2020-12-23 09:24:56 2020-12-23 10:09:56 Data Review Specialist Visit Ultrasound, Adc [facility] Florian contreras [facility] 1.2.840.114 350.1.13.10 4.2.7.2.686 [id number] 134 [id number] [facility] 2020-12-23 08:28:32 2020-12-23 09:28:16 Routine Visit Adum, Sugar [facility] 1.2.840.114 350.1.13.10 4.2.7.2.686 [id number] 134 [id number] [facility] 2020-12-23 08:15:00 2020-12-23 08:15:00 [facility] [id number] 2020-11-25 15:27:41 2020-11-25 16:13:45 Routine Visit Adum, Sugar [facility] 1.2.840.114 350.1.13.10 4.2.7.2.686 [id number] 134 [id number] [facility] 2020-11-25 13:25:57 2020-11-25 14:25:57 Data Review Specialist Visit Ultrasound, Adc [facility] Ad, Sugar Enedina contreras [facility] 1.2.840.114 350.1.13.10 4.2.7.2.686 [id number] 134 [id number] [facility] 2020-11-25 13:30:00 2020-11-25 13:30:00 Outpatient R ADSUGAR CORNELL [facility] [id number] [facility] 2020-11-25 00:00:00 2020-11-25 00:00:00 Case Management Adum, Sugar Mcconnell [facility] 1.2.840.114 350.1.13.10 4.2.7.2.686 [id number] 134 [id number] [facility] 2020-11-22 00:00:00 2020-11-22 00:00:00 Case Management Adum, Sugar Mcconnell [facility] 1.2.840.114 350.1.13.10 4.2.7.2.686 [id number] [facility] 2020-11-17 11:45:00 2020-11-17 11:45:00 Outpatient R ADKRAIG, SUGAR [facility] [id number] [facility] 2020-11-17 09:39:53 2020-11-17 09:54:53 Data Review Specialist Visit 2, Adc Lab AdSugar cornell [facility] 1.2.840.114 350.1.13.10 4.2.7.2.686 [id number] [facility] 2020-11-16 00:00:00 2020-11-16 00:00:00 Telephone Adum, Sugar Mcconnell [facility] 1.2.840.114 350.1.13.10 4.2.7.2.686 [id number] [facility] 2020-10-31 09:00:00 2020-10-31 09:00:00 Outpatient R [facility] [id number] [facility] 2020-10-31 00:00:00 2020-10-31 00:00:00 Telephone AdumSugar [facility] 1.2.840.114 350.1.13.10 4.2.7.2.686 [id number] 134 [id number] [facility] 2020-10-26 15:52:58 2020-10-26 16:59:05 Telemedici ne Visit Adum, Sugar [facility]cconnell [facility] 1.2.840.114 350.1.13.10 4.2.7.2.686 [id number] [facility] 2020-10-26 16:00:00 2020-10-26 16:00:00 Outpatient R ADUM, SUGAR [facility] [id number] [facility] 2020-10-19 11:30:00 2020-10-19 11:30:00 Outpatient R ADUM, SUGAR [facility] [id number] [facility] 2020-10-04 00:00:00 2020-10-04 00:00:00 Telephone Adum, Sugar Mcconnell [facility] 1.2.840.114 350.1.13.10 4.2.7.2.686 [id number] 134 [id number] [facility] 2020-09-30 00:00:00 2020-09-30 00:00:00 Telephone Adum, Sugar Mcconnell [facility] 1.2.840.114 350.1.13.10 4.2.7.2.686 [id number] 134 [id number] [facility] 2020-09-21 09:59:32 2020-09-21 11:34:22 Routine Visit Adum, Sugar Mcconnell [facility] [place] [facility] 1.2.840.114 350.1.13.10 4.2.7.2.686 [id number] 134 [id number] [facility] 2020-09-21 10:15:00 2020-09-21 10:15:00 Outpatient R ADUM, SUGAR [facility] [id number] [facility] 2020-09-21 00:00:00 2020-09-21 00:00:00 Orders Only Doctor Unassigned, [place] [facility] 1.2.840.114 350.1.13.10 4.2.7.2.686 [id number] [facility] 2020-08-30 00:00:00 2020-08-30 00:00:00 Telephone Adum, Sugar Mcconnell [facility] 1.2.840.114 350.1.13.10 4.2.7.2.686 [id number] 134 [id number] [facility] 2020-08-26 09:48:00 2020-08-26 10:03:00 Data Review Specialist Visit 2, Adc Lab Adum, Sugar Mcconnell [facility] 1.2.84.114 350.1.13.10 4.2.7.2.686 [id number] 353 [id number] [facility] 2020-08-26 09:15:00 2020-08-26 09:15:00 Outpatient R [facility] [id number] [facility] 2020-08-24 12:22:39 2020-08-24 12:37:39 Data Review Specialist Visit Pob, Adc Lab Main Adum, Sugar Mcconnell [facility] 1.284.114 350.1.13.10 4.2.7.2.686 [id number] [facility] 2020-08-24 10:53:04 2020-08-24 12:11:59 Initial Visit Adum, Sugar Mcconnell [facility] 1.2.840.114 350.1.13.10 4.2.7.2.686 [id number] 134 [id number] [facility] 2020-08-24 10:30:00 2020-08-24 10:30:00 Outpatient R ADUM, SUGAR [facility] [id number] [facility] 2020-08-24 00:00:00 2020-08-24 00:00:00 Orders Only Doctor Unassigned, [place] [facility] 1..840.114 350.1.13.10 4.2.7.2.686 [id number] [facility] 2020-08-22 00:00:00 2020-08-22 00:00:00 Telephone Adum, Sugar [place] [facility] 1..840.114 350.1.13.10 4.2.7.2.686 [id number] 134 [id number] [facility] 2019-01-01 08:30:00 2019-01-01 08:30:00 Outpatient [facility] [id number] [facility] Results Test Description Test Time Test Comments Results Result Co mments Source [facility]
[2025-04-29] MEDS ORDERED: ACETAMINOPHEN 500 MG TAB ONE (17:44)
[2025-04-29 18:22] LABS: Urine Culture Reflex Order NOT NEEDED; Urine Microscopic Reflex YN ORDER UMIC; Urine WBC Clump Rare /HPF (None Seen); Urine Yeast (Budding) Trace /HPF (None Seen)
--- NOTE | 2025-04-29 19:23 | ER ---
Nurse's Notes [facility] Name: Kati García Age: 19 yrs Sex: Female : 2005 Arrival Date: 04/29/2025 Time: 16:11 Bed 20 Private MD: Diagnosis: Lower abdominal pain, unspecified;Acute cystitis with hematuria Presentation: 04/29 16:36 Chief complaint: Patient states: reports abdominal pain a few days ago that resolved me1 and today diffuse abdominal pain that has been persistent. Reports pain with urination. Denies n/v/d. Denies fever. Coronavirus screen: Vaccine status: Patient reports being unvaccinated. Ebola Screen: No symptoms or risks identified at this time. Initial Sepsis Screen: Does the patient meet any 2 criteria? No. Patient's initial sepsis screen is negative. Does the patient have a suspected source of infection? No. Patient's initial sepsis screen is negative. Risk Assessment: Do you want to hurt yourself or someone else? Patient reports no desire to harm self or others. Onset of symptoms is unknown. 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 - Infectious Disease History:: Denies. - Social history:: Smoking status: Reported history of juuling and/or vaping. Screenin:00 [facility] ED Fall Risk Assessment (Adult) History of falling in the last 3 months, rg5 including since admission No falls in past 3 months (0 pts) Confusion or Disorientation No (0 pts) Intoxicated or Sedated No (0 pts) Impaired Gait No (0 pts) Mobility Assist Device Used No (0 pt) Altered Elimination No (0 pt) Score/Fall Risk Level 0 - 2 = Low Risk Oriented to surroundings, Maintained a safe environment, Hourly rounding (assess needs \T\ fall precautionary measures) done. Abuse screen: Denies threats or abuse. Nutritional screening: No deficits noted. Tuberculosis screening: No symptoms or risk factors identified. Assessment: 17:00 General: Appears in no apparent distress. comfortable, Behavior is calm, cooperative, rg5 appropriate for age. 17:00 Pain: Complains of pain in abdomen Quality of pain is described as aching. Neuro: Level rg5 of Consciousness is awake, alert, obeys commands, Oriented to person, place, time, situation. Cardiovascular: Denies chest pain, Patient's skin is warm and dry. Respiratory: Airway is patent Trachea midline Respiratory effort is even, unlabored, Respiratory pattern is regular, symmetrical. GI: Abdomen is round non-distended, Bowel sounds present in left lower quadrant Abd is soft Reports lower abdominal pain. : No signs and/or symptoms were reported regarding the genitourinary system. EENT: No signs and/or symptoms were reported regarding the EENT system. Derm: Skin is intact, Skin is dry, Skin is normal. Musculoskeletal: Circulation, motion, and sensation intact. Range of motion: intact in all extremities. 18:00 Reassessment: Patient and/or family updated on plan of care and expected duration. Pain rg5 level reassessed. Patient is alert, oriented x 3, equal unlabored respirations, skin warm/dry/pink. 19:02 Reassessment: Patient and/or family updated on plan of care and expected duration. Pain rg5 level reassessed. Patient is alert, oriented x 3, equal unlabored respirations, skin warm/dry/pink. Vital Signs: 16:36 BP 112 / 76; Pulse 71; Resp 17; Temp 98.3; Pulse Ox 100% ; Weight 58.06 kg; Height 5 me1 ft. 3 in. ; Pain 5/10; 17:20 BP 115 / 72; Pulse 86; Pulse Ox 100% ; Pain 7/10; rg5 18:22 BP 109 / 64; Pulse 87; Resp 18; Pulse Ox 100% ; rg5 19:21 BP 103 / 65; Pulse 65; Resp 18; Pain 7/10; rg5 16:36 Body Mass Index 22.67 (58.06 kg, 160.02 cm) me1 16:36 Pain Scale: Adult me1 17:20 Pain Scale: Adult rg5 19:21 Pain Scale: Adult rg5 ED Course: 16:15 Patient arrived in ED. al6 16:21 [facility] cr[facility] 16:21 Tomi Raines MD is Attending Physician. cr8 16:40 Triage completed. me1 16:40 Arm band placed on Patient placed in waiting room. me1 17:00 Patient has correct armband on for positive identification. Bed in low position. Call rg5 light in reach. Side rails up X 1. Door closed. Noise minimized. Warm blanket given. 17:00 No provider procedures requiring assistance completed. rg5 17:38 Mack Peck, RN is Primary Nurse. rg5 19:30 Provided Education on: post er care. rg5 19:30 Patient did not have IV access during this emergency room visit. rg5 Administered Medications: 17:59 Drug: Acetaminophen PO 1000 mg PO once Route: PO; rg5 18:21 Follow up: Response: No adverse reaction; Pain is decreased rg5 Medication: 17:00 VIS not applicable for this client. rg5 Outcome: 19:23 Discharge ordered by MD. cr8 19:34 Discharged to home ambulatory, rg5 19:34 Condition: stable 19:34 Discharge instructions given to patient, Instructed on discharge instructions, Demonstrated understanding of instructions, Prescriptions given X 1, 19:34 Patient left the ED. rg5 Signatures: Yanely Garcia RN RN me1 Mack Peck, CHRISTIN RN rg5 Diandra Greenfield6 Yash Blankenship NP FIELD PROJECT MANAGER cr8
--- NOTE | 2025-04-29 19:23 | EDPHYS ---
Physician Documentation [facility] Name: Kati García Age: 19 yrs Sex: Female : 2005 Arrival Date: 04/29/2025 Time: 16:11 Bed 20 Private MD: ED Physician Tomi Raines HPI: 04/29 16:44 This 19 yrs old Female presents to ER via Ambulatory with complaints of Abdominal Pain. cr8 16:44 Patient is a 19-year-old female with no medical history comes in emergency room cr8 complaining of abdominal pain. Reports she had some few days ago and it went away and then came back this morning. Reports it is suprapubic pain. Reports dysuria. Denies fever nausea vomiting diarrhea. Denies being . No dyspareunia or vaginal discharge reported.. 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 - Infectious Disease History:: Denies. - Social history:: Smoking status: Reported history of juuling and/or vaping. ROS: 19:25 Constitutional: as per HPI cr8 Exam: 17:00 Constitutional: This is a well developed, well nourished patient who is awake, alert, cr8 and in no acute distress. Cardiovascular: Regular rate and rhythm with a normal S1 and S2. No gallops, murmurs, or rubs. Abdomen/GI: Soft, TTP mostly suprapubic, mild RLQ, with normal bowel sounds. No distension. No guarding or rebound. Skin: Warm, dry with normal turgor. Normal color with no rashes, no lesions, and no evidence of cellulitis. Vital Signs: 16:36 BP 112 / 76; Pulse 71; Resp 17; Temp 98.3; Pulse Ox 100% ; Weight 58.06 kg; Height 5 me1 ft. 3 in. ; Pain 5/10; 17:20 BP 115 / 72; Pulse 86; Pulse Ox 100% ; Pain 7/10; rg5 18:22 BP 109 / 64; Pulse 87; Resp 18; Pulse Ox 100% ; rg5 19:21 BP 103 / 65; Pulse 65; Resp 18; Pain 7/10; rg5 16:36 Body Mass Index 22.67 (58.06 kg, 160.02 cm) me1 16:36 Pain Scale: Adult me1 17:20 Pain Scale: Adult rg5 19:21 Pain Scale: Adult rg5 MDM: 16:33 Medical Screening Exam initiated cr8 17:00 Data reviewed: vital signs, nurses notes, lab test result(s). Refusal of service: The cr8 patient/guardian displays adequate decision making capability and despite a detailed discussion of alternatives, benefits, risks, and consequences refuses: CT Scan. ED course: . ED course: Patient came in for dysuria and suprapubic pain. Differential includes acute cystitis pyonephritis STD. Ordered a urinalysis for further evaluation. Differentials also ectopic . Her test came back negative so unlikely be ectopic . No vaginal discharge or dyspareunia so do not suspect an STD at this time. Urinalysis was positive nitrates and leukocyte esterase so likely has UTI causing her symptoms. Went into discussed with the results with her. She was having some tenderness across the suprapubic and right lower quadrant region. I advised that we could go ahead and order a CAT scan to evaluate for appendicitis. 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 I explained that without the CAT scan I cannot 100% rule out appendicitis. She verbalized understanding was agreeable but states she could not stay and wait for this to be done. We discussed the treatment plan which includes discharge with antibiotics Tylenol ibuprofen at home. We discussed return precautions which include worsening pain nausea vomiting or fever. She was advised if any of this occurs she needs return to the emergency room medially she verbalized understanding was agreeable. Did consider ovarian torsion but given examination pain is not out of proportion and basically well-appearing do not suspect this.. 08 16:39 Order name: UA Rfx Steve Cult if indicated; Complete Time: 18:34 cr8 04/29 16:39 Order name: Test, Urine; Complete Time: 18:34 cr8 Administered Medications: 17:59 Drug: Acetaminophen PO 1000 mg PO once Route: PO; rg5 18:21 Follow up: Response: No adverse reaction; Pain is decreased rg5 Disposition Summary: 04/29/25 19:23 Discharge Ordered Notes: Location: Home cr8 Condition: Stable cr8 Diagnosis - Lower abdominal pain, unspecified cr8 - Acute cystitis with hematuria cr8 Followup: cr8 - With: Private Physician - When: 1 - 2 days - Reason: Recheck today's complaints, Continuance of care, Re-evaluation by your physician Followup: cr8 - With: Emergency Department - When: - Reason: Fever > 102 F, If symptoms return, Worsening of condition, Abdominal pain back pain fever Discharge Instructions: - Discharge Summary Sheet cr8 - Abdominal Pain, Adult cr8 - Urinary Tract Infection, Adult cr8 Forms: - Medication Reconciliation Form cr8 - Antibiotic Education cr8 - Patient Portal Instructions cr8 - Leadership Thank You Letter cr8 Prescriptions: - Cephalexin 500 mg Oral capsule - take 1 capsule ORAL route every 8 hours for 5 days; 15 capsule; Refills: 0, cr8 Product Selection Permitted Signatures: Dispatcher [employer] Yanely Calloway RN RN me1 Mack Peck RN RN rg5 Yash Blankenship NP NATURAL GAS BASIS TRADER cr8
[2025-04-29 20:32] VITALS: O2SAT 100
[2025-04-29 20:35] VITALS: BP 103/65
== END 2025-04-29 19:34 | disposition home or self-care (01) ==
LOC: ER 16:11
DX: N30.01 Acute cystitis with hematuria (principal)
CPT/HCPCS: 81001; 81025; 99283